=== PATIENT | male | born 1965 | race Caucasian/White ===

== ENCOUNTER 2016-05-20 07:28 | Observation (INO) | payer OTHER ==
[~2016-05-20] VITALS: Ht 167.6 cm; Wt 94.1 kg
[~2016-05-20 07:28] MED LIST: ADVIL200 MG PO; ASPIRIN81 M2 PO; Aspirin E.C. PO; BENICAR20 MG PO; Benicar PO; CLEOCIN300 MG PO; CLOPIDOGREL75 MG PO; FOLIC ACID1 MG PO; IMDUR60 MG PO; INDOCIN50 MG PO; Imdur PO; LIPITOR40 MG PO; LIPITOR80 MG PO; LO-DOSE ASPIRIN81 M1 PO; LYRICA75 MG PO; Lipitor PO; METOPROLOL SUCC50 MG PO; NAPROXEN500 MG PO; PERCOCET 5/31 TABLET PO; PLAVIX75 MG PO; PRINIVIL10 MG PO; Plavix PO; SKELAXIN800 MG PO; TEMAZEPAM15 MG PO; TOPROL XL50 MG PO; TRAMADOL HCL50 MG PO; Toprol XL PO; VALIUM5 MG PO; VITAMIN B-1100 MG PO
[2016-05-20 08:18] LABS: HEMATOCRIT 49.6 % (38.0-50.0); MCH 35.7 PG (29.0-34.0); MCHC 35.7 G/DL (30.0-36.0); PLATELET COUNT 230 K/uL (156-360); RBC DIS.WIDTH-CV 12.6 % (11.8-14.6); RBC DIS.WIDTH-SD 45.9 % (39-53); RED BLOOD COUNT 4.96 M/uL (4.00-5.50); WHITE BLOOD COUNT 10.1 K/uL (4.1-10.2)
[2016-05-20 08:26] LABS: CHLORIDE 105 mEq/L (99-109); POTASSIUM 4.2 mEq/L (3.7-5.4); SODIUM 140 mEq/L (136-147)
[2016-05-20 08:28] LABS: GLUCOSE 119 mg/dL (70-99)
[2016-05-20 08:30] LABS: ANION GAP 10 MEQ/L (2-14)
[2016-05-20 08:32] LABS: GFR ESTIMATE (CALCULATED) > 59 mL/min/
[2016-05-20 08:33] LABS: UREA NITROGEN (BUN) 11 mg/dL (9-23)
[2016-05-20 08:40] LABS: TROP-I INTERPRETATION NEGATIVE; TROPONIN-I < 0.01 ng/mL (0.0-0.30)
[2016-05-20] MEDS ORDERED: LYRICA75 MG PO (11:04)
[2016-05-20] MEDS ORDERED: TYLENOL REGULA325 MG PO (11:05)
[2016-05-20] MEDS ORDERED: DOCUSATE SODIU100 MG PO (11:05)
[2016-05-20 14:03] VITALS: BP 122/71
[2016-05-20 15:07] LABS: TROP-I INTERPRETATION NEGATIVE; TROPONIN-I < 0.01 ng/mL (0.0-0.30)
[2016-05-20 16:14] VITALS: BP 109/63
[2016-05-20 20:00] VITALS: BP 141/75
[2016-05-20 23:47] VITALS: BP 101/54
[2016-05-21 04:12] LABS: TROP-I INTERPRETATION NEGATIVE; TROPONIN-I < 0.01 ng/mL (0.0-0.30)
[2016-05-21 04:16] VITALS: BP 134/77
[2016-05-21] MEDS ORDERED: NICOTINE PATCH1 EAC2 TD (07:29)
[2016-05-21 07:44] VITALS: BP 152/87
== END 2016-05-21 08:44 | disposition home or self-care (01) ==
LOC: EME 07:28 → EDOF 10:26 → 5WEST 13:07
PROVIDERS: Internal Medicine; Physician Assistant
DX: R07.9 Chest pain, unspecified (principal); I10 Essential (primary) hypertension; E78.5 Hyperlipidemia, unspecified; F17.210 Nicotine dependence, cigarettes, uncomplicated; F10.10 Alcohol abuse, uncomplicated; Z79.82 Long term (current) use of aspirin; Z82.49 Family history of ischemic heart disease and other diseases of the circulatory system; E66.9 Obesity, unspecified; I25.10 Atherosclerotic heart disease of native coronary artery without angina pectoris; Z98.61 Coronary angioplasty status; R06.09 Other forms of dyspnea; Z83.49 Family history of other endocrine, nutritional and metabolic diseases; Z83.3 Family history of diabetes mellitus
CPT/HCPCS: 71020; 80048; 84484; 85027; 93005; 99202; 99281; 99285; G0378

== ENCOUNTER 2016-06-08 10:20 | Day surgery (SDC) | payer OTHER ==
[~2016-06-08] VITALS: Ht 167.6 cm; Wt 93.4 kg
[~2016-06-08 10:20] MED LIST changes: +DOCUSATE SODIU100 MG PO; +NICOTINE PATCH1 EAC2 TD; +TYLENOL REGULA325 MG PO
[2016-06-08] MEDS ORDERED: LYRICA75 MG PO (10:39)
== END 2016-06-08 17:40 | disposition home or self-care (01) ==
LOC: CATH 10:20
DX: R94.39 Abnormal result of other cardiovascular function study (principal); I25.10 Atherosclerotic heart disease of native coronary artery without angina pectoris; I10 Essential (primary) hypertension; E78.5 Hyperlipidemia, unspecified; F17.200 Nicotine dependence, unspecified, uncomplicated; Z95.5 Presence of coronary angioplasty implant and graft
CPT/HCPCS: 85347; C1769; C1887; J0153; J1644; J2250; J3010; J7050

== ENCOUNTER 2016-07-15 12:03 | Emergency (ER) | payer OTHER ==
[~2016-07-15] VITALS: Ht 167.6 cm; Wt 87.9 kg
[2016-07-15 13:37] LABS: HEMATOCRIT 32.6 % (38.0-50.0); MCH 33.8 PG (29.0-34.0); MCHC 33.1 G/DL (30.0-36.0); MCV 101.9 FL (86-99); MEAN PLAT.VOLUME 8.2 uM^3 (9.0-12.4); RBC DIS.WIDTH-CV 13.1 % (11.8-14.6); RBC DIS.WIDTH-SD 46.4 % (39-53)
[2016-07-15 13:38] LABS: BASOPHIL COUNT 0.1 K/uL (0-0.1); EOSINOPHIL (%) 11.2 % (0-5); EOSINOPHIL COUNT 0.9 K/uL (0-0.3); MONOCYTE (%) 9.3 % (3-12); MONOCYTE COUNT 0.8 K/uL (0-0.8); NEUTROPHIL (%) 53.8 % (45-76); NEUTROPHIL COUNT 4.3 K/uL (1.8-6.4)
[2016-07-15 13:50] LABS: CHLORIDE 106 mEq/L (99-109); POTASSIUM 5.2 mEq/L (3.7-5.4); SODIUM 138 mEq/L (136-147)
[2016-07-15 13:52] LABS: GLUCOSE 94 mg/dL (70-99)
[2016-07-15 13:53] LABS: ANION GAP 8 MEQ/L (2-14)
[2016-07-15 13:54] LABS: TOTAL BILIRUBIN 0.4 mg/dL (0.0-1.0)
[2016-07-15 13:55] LABS: ALKALINE PHOSPHATASE 63 IU/L (3-129)
[2016-07-15 13:56] LABS: GFR ESTIMATE (CALCULATED) > 59 mL/min/
[2016-07-15 13:57] LABS: UREA NITROGEN (BUN) 8 mg/dL (9-23)
[2016-07-15 13:59] LABS: TROP-I INTERPRETATION NEGATIVE; TROPONIN-I 0.02 ng/mL (0.0-0.30)
[2016-07-15 14:01] LABS: PLATELET COUNT 487 K/uL (156-360)
[2016-07-15 14:20] LABS: HEMATOLOGY COMMENT 1 SMEAR COMPATIBLE; USER ID CL
[2016-07-15] MEDS ORDERED: LIDODERM 5% P1 PATCH TD (15:09)
[2016-07-15 15:23] VITALS: BP 111/82
== END 2016-07-15 15:30 | disposition home or self-care (01) ==
LOC: EME 12:03
PROVIDERS: Emergency Medicine
DX: G89.18 Other acute postprocedural pain (principal); R07.89 Other chest pain; Z95.1 Presence of aortocoronary bypass graft; I10 Essential (primary) hypertension; Z95.5 Presence of coronary angioplasty implant and graft; Z79.82 Long term (current) use of aspirin; F17.200 Nicotine dependence, unspecified, uncomplicated; Z71.6 Tobacco abuse counseling
CPT/HCPCS: 71010; 80053; 84484; 85025; 93005; 99281; 99285; J3010

== ENCOUNTER 2016-10-15 09:19 | Emergency (ER) | payer OTHER ==
[~2016-10-15] VITALS: Ht 167.6 cm; Wt 94.8 kg
[~2016-10-15 09:19] MED LIST changes: +LIDODERM 5% P1 PATCH TD
[2016-10-15 09:57] LABS: BASOPHIL COUNT 0.1 K/uL (0-0.1); EOSINOPHIL (%) 2.8 % (0-5); EOSINOPHIL COUNT 0.3 K/uL (0-0.3); HEMATOCRIT 49.5 % (38.0-50.0); IMMATURE GRANULOCYTE (%) 0.3 % (0.0-0.7); INSTRUMENT ABS NEUTROPHIL CT 4.8 K/uL; LYMPHOCYTE COUNT 3.1 K/uL (1.0-2.8); MCHC 34.5 G/DL (30.0-36.0); MCV 98.4 FL (86-99); MONOCYTE (%) 9.6 % (3-12); MONOCYTE COUNT 0.9 K/uL (0-0.8); NEUTROPHIL (%) 52.7 % (45-76); NEUTROPHIL COUNT 4.8 K/uL (1.8-6.4); PLATELET COUNT 216 K/uL (156-360); RBC DIS.WIDTH-CV 15.3 % (11.8-14.6); RBC DIS.WIDTH-SD 56.1 % (39-53); RED BLOOD COUNT 5.03 M/uL (4.00-5.50); WHITE BLOOD COUNT 9.2 K/uL (4.1-10.2)
[2016-10-15 10:13] LABS: CHLORIDE 104 mEq/L (99-109); POTASSIUM 5.6 mEq/L (3.7-5.4); SODIUM 137 mEq/L (136-147)
[2016-10-15 10:14] LABS: GLUCOSE 119 mg/dL (70-99)
[2016-10-15 10:16] LABS: ANION GAP 7 MEQ/L (2-14)
[2016-10-15 10:18] LABS: GFR ESTIMATE (CALCULATED) > 59 mL/min/
[2016-10-15 10:19] LABS: UREA NITROGEN (BUN) 14 mg/dL (9-23)
[2016-10-15 11:04] LABS: ADD MIUA? YES; BILIRUBIN NEGATIVE; BLOOD SMALL; COLOR STRAW ((YELLOW)); GLUCOSE (STRIP) NEGATIVE; KETONES NEGATIVE; LEUKOCYTES NEGATIVE; NITRITE NEGATIVE; PROTEIN (STRIP) NEGATIVE; SPECIFIC GRAVITY 1.008 (1.000-1.030); UROBILINOGEN 0.2 MG/DL (0.2-1.0)
[2016-10-15 11:08] LABS: BACTERIA NONE SEEN /HPF; EPITHELIAL CELLS NONE SEEN /HPF; MUCUS NONE SEEN /LPF; RED BLOOD CELLS 0-5 /HPF (0-5); WHITE BLOOD CELLS 0-5 /HPF (0-5)
[2016-10-15 11:33] LABS: TOTAL BILIRUBIN 0.5 mg/dL (0.0-1.0)
[2016-10-15 11:34] LABS: ALKALINE PHOSPHATASE 59 IU/L (3-129)
[2016-10-15 11:37] LABS: DIRECT BILIRUBIN 0.2 mg/dL (0.0-0.3)
[2016-10-15 11:38] LABS: LIPASE 36 U/L (1.0-51.0)
[2016-10-15 11:39] LABS: TROP-I INTERPRETATION NEGATIVE; TROPONIN-I < 0.01 ng/mL (0.0-0.30)
[2016-10-15 11:42] LABS: D-DIMER ELISA 0.48 mg/L FEU (< 0.57)
[2016-10-15 12:05] VITALS: BP 134/76
== END 2016-10-15 12:48 | disposition left against medical advice (07) ==
LOC: EME 09:19
PROVIDERS: Nurse Practitioner Family
DX: R10.9 Unspecified abdominal pain (principal); R10.13 Epigastric pain; R94.31 Abnormal electrocardiogram [ECG] [EKG]; F17.200 Nicotine dependence, unspecified, uncomplicated; I10 Essential (primary) hypertension; I25.2 Old myocardial infarction; Z95.5 Presence of coronary angioplasty implant and graft; Z95.1 Presence of aortocoronary bypass graft; Z87.442 Personal history of urinary calculi
CPT/HCPCS: 74177; 80048; 80076; 81003; 83690; 84484; 85025; 85379; 93005; 99281; 99285; J7030